=== PATIENT | female | born 2000 | race Caucasian/White ===

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

== ENCOUNTER 2019-08-29 10:28 | Inpatient (IN) ==
[2019-08-29] MEDS ORDERED: ALBUT/IPRATROP 3MG/0.5MG NEB 3 ML VIAL INH STA (11:00)
[2019-08-29] MEDS ORDERED: SODIUM CHLORIDE 0.9% 1000ML 2,000 ML IV SCH (11:00)
[2019-08-29 11:42] LABS: Basophils # (auto) 0.02 K/uL (0-0.2); Basophils % (auto) 0.2 %; Eosinophils # (auto) 0.42 K/uL (0-0.5); Eosinophils % (auto) 3.4 %; Hematocrit (blood only) 36.2 % (37-47); Hemoglobin 12.8 g/dL (12.0-16.0); Immature Granulocytes # (auto) 0.02 K/uL (0.00-0.02); Immature Granulocytes % (auto) 0.2 %; Lymphocytes # (auto) 1.35 K/uL (1.2-3.4); Mean Corpuscular Hemoglobin 30.7 pg (25-34); Mean Corpuscular Hgb Conc 35.4 g/dL (32-36); Mean Corpuscular Volume 86.8 fL (80-100); Monocytes # (auto) 0.76 K/uL (0.11-0.59); Monocytes % (auto) 6.2 %; Neutrophils # (auto) 9.75 K/uL (1.4-6.5); Platelet Count 369 K/uL (130-400); RDW Coefficient of Variation 12.7 % (11.5-14.5); RDW Standard Deviation 40.8 fL (36.4-46.3); Red Blood Count 4.17 M/uL (4.2-5.4); White Blood Count 12.32 K/uL (4.8-10.8)
[2019-08-29 11:47] LABS: Appearance Urine Cloudy (Clear); Bacteria Urine Automated Negative (Negative); Blood Urine Negative (Negative); Color Urine Dark Yellow; Epithelial Cell Urine Auto >30 /lpf (0-5); Glucose Urine UA Negative (Negative); Leukocyte Esterase Urine Negative (Negative); Nitrite Urine Negative (Negative); Protein Urine 1+ (Negative); Specific Gravity Urine 1.031 (1.000-1.030); Urobilinogen Urine Negative (Negative)
[2019-08-29 11:57] LABS: Bilirubin Urine Negative (Negative); Ictotest Urine Negative (Negative); Ketones Urine 3+ (Negative); Partial Thromboplastin Ratio 1.1; Partial Thromboplastin Time 29.4 Seconds (21.0-31.0)
[2019-08-29 11:58] LABS: Calcium Oxalate Crystals Urine Present (None Prsent)
[2019-08-29 11:59] LABS: Albumin Level 3.7 gm/dl (3.4-5.0); BUN Creatinine Ratio 14.6 (10-20); Calcium 9.8 mg/dl (8.5-10.1); Creatinine Clr Calc Pharmacy 89.5 ml/min; Est GFR (African American) 123.9; Est GFR (Non-African American) 106.9; Potassium 3.7 mmol/L (3.5-5.1)
--- NOTE | 2019-08-29 11:59 | XRay Report ---
XR chest 1V portable CLINICAL HISTORY: Dyspnea dyspnea COMPARISON STUDY: No previous studies for comparison. FINDINGS: Poorly defined parenchymal infiltrate left mid and lower lung region. Minimal parenchymal i nfiltrate right base. Pulmonary apices are clear. Diaphragms are smooth. IMPRESSION: Left and to a lesser extent right base parenchymal infiltrative change. No regions of co nsolidation. ACT 112: Negative or not required by law. The above report was generated using voice recognition software. It may contain grammatical, syntax or spelling errors. Electronically signed by: Luke Kline M.D. 08/29/2019 11:57 AM
[2019-08-29 12:02] LABS: Albumin Globulin Ratio 0.8 (0.9-2); Bilirubin,Total 0.8 mg/dl (0.2-1); Globulin 4.7 gm/dl (2.5-4.0); Total Protein 8.4 gm/dl (6.4-8.2)
[2019-08-29 12:07] LABS: D Dimer 780 ug/L FEU (0-500)
[2019-08-29 12:20] LABS: Influenza A virus by PCR Neg for Influ A (Neg); Influenza B virus by PCR Neg for Influ B (Neg)
[2019-08-29] MEDS ORDERED: OPTIRAY 320 125ml IV PRN (12:44)
--- NOTE | 2019-08-29 13:06 | CT Scan Report ---
CT angio chest PE protocol CT DOSE: 303.53 mGycm HISTORY: Chest pain PE TECHNIQUE: Multiaxial CT images of the chest were performed following the intravenous administration of contrast to evaluate the pulmonary arteries. Maximal intensity projection images were also obtaine d. A dose lowering technique was utilized adhering to the principles of ALARA. COMPARISON STUDY: None. FINDINGS: There is a normal caliber thoracic aorta with no evidence for dissection. There is no evide nce for pulmonary embolus. No pleural effusions. No pneumothorax. The liver and spleen are unremarkab le. No mediastinal or hilar lymphadenopathy. The central airways are patent. The lungs demonstrate a poorly defined parenchymal infiltrate left upper lung distribution. IMPRESSION: 1. Study is negative for pulmonary embolus. 2. Poorly defined patchy parenchymal infiltrate left upper lung. ACT 112: Negative or not required by law. The above report was generated using voice recognition software. It may contain grammatical, syntax or spelling errors. Electronically signed by: Luke Kline M.D. 08/29/2019 1:05 PM
[2019-08-29] MEDS ORDERED: SODIUM CHLORIDE 0.9% 1000ML 1,000 ML IV ONE (13:11)
[2019-08-29] MEDS ORDERED: methylPREDNISolone 125 MG/2 ML VIAL IV STA (13:26)
[2019-08-29] MEDS ORDERED: ALBUTEROL 0.083% NEBU SOLN 3 ML VIAL NEB STA (13:26)
[2019-08-29] MEDS ORDERED: LEVOFLOXACIN/D5W 750 MG/150 ML BAG IV SCH (13:30)
[2019-08-29] MEDS ORDERED: KETOROLAC TROMETHAMINE 15 MG/ML VIAL IV PRN (14:41)
[2019-08-29] MEDS ORDERED: OXYCODONE/ACETAMINOPHEN 5mg/325mg TAB PO PRN (14:41)
--- NOTE | 2019-08-29 14:51 | History & Physical Report ---
Date of Service August 29, 2019 Assessment & Plan (1) Pneumonia: Admit to PCU on telemetry for pneumonia and possible sepsis. Procalcitonin pending, lactic acid pending Blood cultures and sputum cultures pending Patient failed treatment with Augmentin and he was started in the ER and Levaqu in 750mg IV daily empirically Follow-up blood and sputum cultures Duo nebs every 4 hours and as needed as per RT Robitussin for cough every 6 hours Prednisone 20 mg p.o. daily for 5 days. Patient already received 60 IV of Solu- Medrol in the ER. DVT prophylaxis Lovenox 40 mg subcu daily Full code (2) Abnormal EKG: Patient is tachycardic due to pneumonia versus sepsis Tachycardia is on demand and T wave inversion appears to be on demand There is no other EKG for comparison First troponin is negative, we will continue checking troponins x3 with EKG Given aspirin 81 mg p.o. Continue monitoring vital signs every 4 hours Present on Admission?: Yes (3) Asthma: Patient does not appear to be in exacerbation even though she has pneumonia and possible sepsis. Continue duo nebs as discussed above. She is not at home on any medication for asthma. Present on Admission?: Yes History of Present Illness Chief Complaint: Cough and malaise Primary Care Provider: [facility] The patient is a 18 years old female without significant past medical history who presents to the emergency room with a complaint of shortness of breath, productive cough for 2 weeks. Patient reports that her condition is worsening and she went to [facility] where she was prescribed Augmentin on August 25. Patient started to take medicine on Monday but she reports no improvement for the past 3 days. Patient reports that her body aches and she feels malaise. Patient denies fever, chills,, chest pain, abdominal pain, frequency, urgency, syncope or near syncope. EKG reviewed and shows sinus tachycardia of rate 138 bpm with T wave abnormalities inversion in inferior and anterolateral leads. Labs are reviewed WBC is 12.32, hemoglobin 12.8, hematocrit 36.2, platelets 369, PT 10, INR 1, APTT 29.4, d-dimer 780, sodium 136, potassium 3.7, chloride 105, carbon dioxide 22, anion gap 9, BUN 12, creatinine 0.8, GFR 106.9, magnesium pending, total bilirubin 0.8, AST 16, ALT 22, alkaline phosphatase 87, troponin 0.015, total protein 8.4, albumin 3.7, globulin 4.7, urine color dark yellow, appearance cloudy, specific gravity 1.0 31, urine protein 1+ urine ketones 3+ urine RBCs 5-10, hyaline 5-10. Influenza A and B negative. Chest x-ray shows left and now a lesser extent right base parenchymal infiltrate change. No regions of consolidation. CTA to rule out pulmonary embolism: Study is negative for pulmonary embolism, poorly defined patchy parenchymal infiltrate left upper lung. Decision was made to admit patient to PCU on telemetry for pneumonia and possible sepsis, ST segment depression. Allergies Allergy/AdvReac Type Severity Reaction Status Date / Time metronidazole AdvReac Intermediate Nausea and Unverified 08/29/19 11:48 Dizziness Home Medications Home Medications Medication Instructions Recorded Confirmed Type norethindrone-e.estradiol-iron 1 tab PO QAM 08/29/19 08/29/19 History [] Past Med/Surg History Medical History Asthma (Acute) Family History Other No significant family history Social History Preferred Language: Emirati marital status: Single Current Living Situation: Other Current Living Situation Comment: Roommate current occupational status: student Feels Safe at Home: Yes Smoking Status: Never smoker Review of Systems Review of Systems: All systems reviewed & are unremarkable except as noted in HPI & below Physical Exam Constitutional: WD/WN, vitals as above well developed and + ill appearing Eyes: PERRL, conjunctivae normal, anicteric sclerae ENMT: external ear and nose normal, oropharynx normal Neck: trachea midline, no thyromegaly Respiratory: + respiratory distress, + labored breathing and + uses accessory muscles Auscultation: + crackles and + wheezes Cardiovascular: Rate/Rhythm: regular rate, regular rhythm and + tachycardic Vessels: dorsalis pedis pulses present Gastrointestinal (Abdomen): normal bowel sounds, soft, nontender, no hepatosplenomegaly Musculoskeletal: no cyanosis or clubbing, extremities motor strength 5/5 Skin: no rashes, warm and dry Neurologic: patellar DTR's 2+ bilat, sensation intact Psychiatric: A+Ox3, euthymic affect Genitourinary: no vaginal lesions, no adnexal mass Lymphatic: no cervical or axillary lymphadenopathy Results & Data Vital Signs (Past 12 Hours) Vital Signs Temp Pulse Pulse Pulse Resp BP BP 08/29/19 14:00 133 H 133 H 16 117/82 08/29/19 13:36 124 H 16 08/29/19 13:30 126 H 126 H 16 126/77 08/29/19 13:00 146 H 18 125/83 08/29/19 12:30 132 H 18 138/98 08/29/19 12:00 136 H 18 130/84 08/29/19 11:26 152 H 26 H 135/89 08/29/19 11:15 137 H 18 08/29/19 11:00 138 H 136 H 18 132/82 08/29/19 10:51 37.2 C 138 H 20 123/79 Pulse Ox 08/29/19 14:00 96 08/29/19 13:36 95 08/29/19 13:30 94 08/29/19 13:00 93 08/29/19 12:30 95 08/29/19 12:00 95 08/29/19 11:26 94 08/29/19 11:15 94 08/29/19 11:00 94 08/29/19 10:51 96 Code Status & VTE Plan Code Status Full code PG Care Time/CCT Total # of Minutes Spent Total Time Spent with Patient: Total time spent is greater than 50% in coordination of care (as documented) at patient's floor/unit and/or counseling patient: Coding Level of Care Code 39132 Initial Inpt Care Lvl 3 Diagnoses Pneumonia J18.9 Laterality: unspecified laterality Lung location: unspecified part of lung Pneumonia type: due to unspecified organism Abnormal EKG R94.31 Asthma J45.909 Asthma complication type: unspecified Asthma persistence: unspecified Asthma severity: unspecified severity (1) Pneumonia Laterality: unspecified laterality Lung location: unspecified part of lung Pneumonia type: due to unspecified organism Qualified Code(s): J18.9 - Pneumonia, unspecified organism (2) Asthma Asthma complication type: unspecified Asthma persistence: unspecified Asthma severity: unspecified severity Qualified Code(s): J45.909 - Unspecified asthma, uncomplicated
[2019-08-29] MEDS ORDERED: ACETAMINOPHEN 325 MG TAB PO PRN (16:21)
[2019-08-29] MEDS ORDERED: ALUMINUM/MAGNESIUM SUSP 30 ML UDC PO PRN (16:21)
[2019-08-29] MEDS ORDERED: ONDANSETRON INJ 2 MG/ML 2 ML VIAL IV PRN (16:21)
[2019-08-29] MEDS ORDERED: POLYETHYLENE (MIRALAX) 17 GM PACK PO PRN (16:21)
[2019-08-29] MEDS ORDERED: GUAIFENESIN/DEXTROM SYRUP 200MG/20MG 10ML UDC PO PRN (16:21)
[2019-08-29] MEDS ORDERED: ALBUT/IPRATROP 3MG/0.5MG NEB 3 ML VIAL NEB SCH (16:21)
[2019-08-29] MEDS ORDERED: MAGNESIUM HYDROXIDE SUSP 30 ML UDC PO PRN (16:21)
--- NOTE | 2019-08-29 16:30 | Emergency Department Note ---
Entered by Jackie Ray acting as a scribe for History of Present Illness General Chief complaint: Flu Like Symptoms Stated complaint: COUGH,CHEST PAIN,FEVER,SOB,HEADACHE,BACK PAIN Source: patient History of Present Illness Onset (ago): day(s) (13) Location: chest Pain Consistency: + other (persistent) Quality: + other (flu-like symptoms) Relieved By: not by medication (Augmentin, Pro Air, nebulizer treatment) Exacerbated By: + other (cold air) Associated symptoms: + denies other symptoms (rhinorrhea, ear pain, sore throat, congestion, dysuria, burning with urination, vaginal bleeding, vaginal discharge), + cough, + fever/chills (fever), + nausea/vomiting (vomiting), + shortness of breath and + other (body aches) The patient is a 18 year old female who presents to the Emergency Room with complaints of persistent flu-like symptoms starting 13 days ago. The patient states that 13 days ago she started having what she thought was just a cold. She states that she just had a cough. She states that she then came back to school for 2 days before going to [place] for 5 days. She reports that when she got back on Monday, 4 days ago, she noticed that she had a fever, her cough was getting worse, and she had body aches. She states that her fever was 101 and since then has been between 100.5 and 103. She reports that she also started coughing up white and yellow phlegm. The patient states that she went to Urgent Care 3 days ago and they started her on Augmentin, Pro Air, and a nebulizer treatment for bronchitis. She notes that she has been taking all the way she is supposed to and nothing is getting better. She reports that today she was st arting to feel short of breath and this concerned her even more. She reports that she cannot go outside because the cold air makes her test feel very tight. The patient complains of vomiting when she coughs so much. The patient notes that her immunizations are up to date and her LNMP was the 1st week of August. The patient denies rhinorrhea, ear pain, sore throat, congestion, dysuria, burning with urination, vaginal bleeding, vaginal discharge, being around anyone who has been sick, a history of blood clots, a history of clotting disorders, and being on control. Home Medications Home Medications Medication Instructions Recorded Confirmed Type norethindrone-e.estradiol-iron 1 tab PO QAM 08/29/19 08/29/19 History [] Allergies Allergy/AdvReac Type Severity Reaction Status Date / Time metronidazole AdvReac Intermediate Nausea and Unverified 08/29/19 11:48 Dizziness Past Med/Surg History Medical History Asthma (Acute) Family History Other No significant family history Social History Preferred Language: Thai marital status: Single Current Living Situation: Other Current Living Situation Comment: Roommate current occupational status: student Feels Safe at Home: Yes Smoking Status: Never smoker Review of Systems See HPI for pertinent positives & negatives. and A total of 10 systems reviewed and were otherwise negative Physical Exam Vital Signs Vital Signs - 24 hr 08/29/19 10:51 08/29/19 11:00 08/29/19 11:15 Temperature 37.2 C Temperature Source Oral Pulse Rate 138 H 138 H Pulse Rate [Apical] Pulse Rate [Radial] 136 H 137 H Pulse Rhythm Regular Pulse Rhythm [Radial] Regular Pulse Strength [Radial] Normal Respiratory Rate 20 18 18 Respiratory Effort / Characteristics Non-Labored Spontaneous Non-Labored Spontaneous Non-Labored Spontaneous Respiratory Depth Normal Normal Respiratory Pattern Regular Regular Blood Pressure 123/79 Blood Pressure [Right Arm] 132/82 Blood Pressure Mean 93 Blood Pressure Mean [Right Arm] 98 Blood Pressure Position Sitting Blood Pressure Position [Right Arm] Lying Pulse Oximetry 96 94 94 Oxygen Delivery Method Room Air Room Air Room Air Sepsis Recent Fever Within 48 Hours No Sepsis New/Unexplained Change in Mental Status No Sepsis Action Taken by Nursing No Action Required 08/29/19 11:26 08/29/19 12:00 08/29/19 12:30 Temperature Temperature Source Pulse Rate Pulse Rate [Apical] Pulse Rate [Radial] 152 H 136 H 132 H Pulse Rhythm Pulse Rhythm [Radial] Regular Regular Regular Pulse Strength [Radial] Normal Normal Normal Respiratory Rate 26 H 18 18 Respiratory Effort / Characteristics Non-Labored Spontaneous Non-Labored Spontaneous Non-Labored Spontaneous Respiratory Depth Normal Normal Normal Respiratory Pattern Regular Regular Regular Blood Pressure Blood Pressure [Right Arm] 135/89 130/84 138/98 Blood Pressure Mean Blood Pressure Mean [Right Arm] 104 99 111 Blood Pressure Position Blood Pressure Position [Right Arm] Lying Lying Lying Pulse Oximetry 94 95 95 Oxygen Delivery Method Room Air Room Air Room Air Sepsis Recent Fever Within 48 Hours Sepsis New/Unexplained Change in Mental Status Sepsis Action Taken by Nursing 08/29/19 13:00 08/29/19 13:30 08/29/19 13:36 Temperature Temperature Source Pulse Rate Pulse Rate [Apical] 126 H 124 H Pulse Rate [Radial] 146 H 126 H Pulse Rhythm Pulse Rhythm [Radial] Regular Regular Pulse Strength [Radial] Normal Normal Respiratory Rate 18 16 16 Respiratory Effort / Characteristics Non-Labored Spontaneous Non-Labored Spontaneous Non-Labored Spontaneous Respiratory Depth Normal Normal Respiratory Pattern Regular Regular Blood Pressure Blood Pressure [Right Arm] 125/83 126/77 Blood Pressure Mean Blood Pressure Mean [Right Arm] 97 93 Blood Pressure Position Blood Pressure Position [Right Arm] Lying Lying Pulse Oximetry 93 94 95 Oxygen Delivery Method Room Air Room Air Room Air Sepsis Recent Fever Within 48 Hours Sepsis New/Unexplained Change in Mental Status Sepsis Action Taken by Nursing 08/29/19 14:00 08/29/19 14:30 Temperature Temperature Source Pulse Rate Pulse Rate [Apical] 133 H 129 H Pulse Rate [Radial] 133 H 129 H Pulse Rhythm Pulse Rhythm [Radial] Regular Regular Pulse Strength [Radial] Normal Normal Respiratory Rate 16 16 Respiratory Effort / Characteristics Non-Labored Spontaneous Non-Labored Spontaneous Respiratory Depth Normal Normal Respiratory Pattern Regular Regular Blood Pressure Blood Pressure [Right Arm] 117/82 126/81 Blood Pressure Mean Blood Pressure Mean [Right Arm] 93 96 Blood Pressure Position Blood Pressure Position [Right Arm] Lying Lying Pulse Oximetry 96 95 Oxygen Delivery Method Room Air Room Air Sepsis Recent Fever Within 48 Hours Sepsis New/Unexplained Change in Mental Status Sepsis Action Taken by Nursing GENERAL: sitting up in bed with persistent intermittent cough, talking in full sentences, nontoxic EYE EXAM: normal conjunctiva OROPHARYNX: no exudate, no erythema, lips, buccal mucosa, and tongue normal and mucous membranes are moist NECK: supple, no nuchal rigidity, no adenopathy, non-tender LUNGS: faint wheezing bilaterally. Normal chest wall mechanics HEART: no murmurs, S1 normal and S2 normal ABDOMEN: abdomen soft, non-tender, normo-active bowel sounds, no masses, no rebound or guarding. BACK: Back is symmetrical on inspection and there is no deformity, no midline tenderness, no CVA tenderness. SKIN: no rashes and no bruising UPPER EXTREMITIES: upper extremities are grossly normal. LOWER EXTREMITIES: No pitting edema. Calves equal bilaterally. NEURO EXAM: Normal sensorium, cranial nerves II-XII grossly intact, normal speech, no gross weakness of arms, no gross weakness of legs. Course Course ED COURSE: Vital signs were reviewed and showed tachycardia. The patients medical record was reviewed The above diagnostic studies were performed and reviewed. ED treatments and interventions as stated above. 1055: The patient was evaluated in room C2B. A complete history and physical ex amination was performed. 1224: I reevaluated the patient and updated her on her test results thus far. She is still tachycardic. 1314: Upon reevaluation, the patient is resting comfortably. I discussed my findings with the patient and she understands and agrees with the treatment plan. Based on the patients age, coexisting illnesses, exam and lab findings the decision to treat as an inpatient was made. The patient remained stable while under my care. The patient will be evaluated for further management. 1338: I discussed the patient's case with Dr. Luu [facility] Hospitalist. She will evaluate the patient for further management. Administered Medications Levofloxacin/Dextrose (Levaquin/D5w) 750 mg in 150 mls @ 100 mls/hr IV Q24H [facility] Stop: 10/10/19 13:29 Last Infusion: 08/29/19 15:47 Dose: 0 mls/hr Documented by: [id number] Admin: 08/29/19 14:17 Dose: 100 mls/hr Documented by: [id number] Discontinued Medications Albuterol (Duoneb) 6 ml INH NOW STA Stop: 08/29/19 11:01 Last Admin: 08/29/19 11:14 Dose: 6 ml Documented by: [id number] Albuterol (Ventolin 0.083% 2.5mg/3ml) 2.5 mg NEB NOW STA Stop: 08/29/19 13:27 Last Admin: 08/29/19 13:36 Dose: 2.5 mg Documented by: [id number] Sodium Chloride (Nss 1000ml) 2,000 mls @ 999 mls/hr IV .Q2H1M HUSEYIN Stop: 08/29/19 13:00 Last Infusion: 08/29/19 13:28 Dose: 0 mls/hr Documented by: [id number] Admin: 08/29/19 11:27 Dose: 999 mls/hr Documented by: [id number] Sodium Chloride (Nss 1000ml) 1,000 mls @ 999 mls/hr IV .Q1H1M ONE Stop: 08/29/19 14:11 Last Infusion: 08/29/19 14:26 Dose: 0 mls/hr Documented by: [id number] Admin: 08/29/19 13:25 Dose: 999 mls/hr Documented by: [id number] Ioversol (Optiray 320 125ml) 120 ml IV ONCE PRN PRN Reason: Interaction Checking Stop: 09/02/19 12:43 Last Admin: 08/29/19 12:45 Dose: 120 ml Documented by: [id number] Methylprednisolone (Solumedrol) 60 mg IV NOW STA Stop: 08/29/19 13:27 Last Admin: 08/29/19 14:17 Dose: 60 mg Documented by: [id number] Medical Decision Making Differential Diagnosis Differential diagnoses includes but is not limited to pneumonia, bronchitis, COPD/Asthma exacerbation, pneumothorax, pulmonary embolism, congestive heart failure, acute coronary syndrome. Medical Records Attestation: I reviewed the patient's medical records. Home Medications Current Medication List: was personally reviewed by me Laboratory Data Attestation: I reviewed the patient's lab results. Result diagrams: 08/29/19 11:26 08/29/19 11:26 Lab Results 08/29/19 08/29/19 08/29/19 Range/Units 11:26 11:26 11:26 WBC 12.32 H (4.8-10.8) K/uL RBC 4.17 L (4.2-5.4) M/uL Hgb 12.8 (12.0-16.0) g/dL Hct 36.2 L (37-47) % MCV 86.8 (80-100) fL MCH 30.7 (25-34) pg MCHC 35.4 (32-36) g/dL RDW Std Deviation 40.8 (36.4-46.3) fL RDW Coeff of Wade 12.7 (11.5-14.5) % Plt Count 369 (130-400) K/uL MPV 9.0 (7.4-10.4) fL Immature Gran % (Auto) 0.2 % Neut % (Auto) 79.0 % Lymph % (Auto) 11.0 % Dale % (Auto) 6.2 % Eos % (Auto) 3.4 % Baso % (Auto) 0.2 % Immature Gran # (Auto) 0.02 (0.00-0.02) K/uL Neut # (Auto) 9.75 H (1.4-6.5) K/uL Lymph # (Auto) 1.35 (1.2-3.4) K/uL Dale # (Auto) 0.76 H (0.11-0.59) K/uL Eos # (Auto) 0.42 (0-0.5) K/uL Baso # (Auto) 0.02 (0-0.2) K/uL PT 10.0 (9.0-12.0) Seconds INR 1.0 (0.9-1.1) APTT 29.4 (21.0-31.0) Seconds PTT Ratio 1.1 D-Dimer 780 H* (0-500) ug/L FEU Sodium 136 (136-145) mmol/L Potassium 3.7 (3.5-5.1) mmol/L Chloride 105 (98-107) mmol/L Carbon Dioxide 22 (21-32) mmol/L Anion Gap 9.0 (3-11) BUN 12 (7-18) mg/dl Creatinine 0.80 (0.6-1.2) mg/dl Est Cr Clr Drug Dosing 89.5 ml/min Est GFR ( Amer) 123.9 Est GFR (Non-Af Amer) 106.9 BUN/Creatinine Ratio 14.6 (10-20) Glucose 81 (70-99) mg/dl Calcium 9.8 (8.5-10.1) mg/dl Magnesium (1.8-2.4) mg/dl Total Bilirubin 0.8 (0.2-1) mg/dl AST 16 (15-37) U/L ALT 22 (12-78) U/L Alkaline Phosphatase 87 (45-117) U/L Troponin I (0-0.045) ng/ml Total Protein 8.4 H (6.4-8.2) gm/dl Albumin 3.7 (3.4-5.0) gm/dl Globulin 4.7 H (2.5-4.0) gm/dl Albumin/Globulin Ratio 0.8 L (0.9-2) Urine Color Urine Appearance (Clear) Urine pH (4.5-7.5) Ur Specific [place] (1.000-1.030) Urine Protein (Negative) Urine Glucose (UA) (Negative) Urine Ketones (Negative) Urine Blood (Negative) Urine Nitrite (Negative) Urine Bilirubin (Negative) Urine Urobilinogen (Negative) Ur Leukocyte Esterase (Negative) Urine WBC (Auto) (0-5) /hpf Urine RBC (Auto) (0-4) /hpf U Hyaline Cast (Auto) (0-5) /lpf U Epithel Cells (Auto) (0-5) /lpf Urine Bacteria (Auto) (Negative) Urine Crystals (None Prsent) Calcium Oxalate Crystal (None Prsent) Influenza Type A (PCR) (Neg) Influenza Type B (PCR) (Neg) 08/29/19 08/29/19 08/29/19 Range/Units 11:26 11:26 11:26 WBC (4.8-10.8) K/uL RBC (4.2-5.4) M/uL Hgb (12.0-16.0) g/dL Hct (37-47) % MCV (80-100) fL MCH (25-34) pg MCHC (32-36) g/dL RDW Std Deviation (36.4-46.3) fL RDW Coeff of Wade (11.5-14.5) % Plt Count (130-400) K/uL MPV (7.4-10.4) fL Immature Gran % (Auto) % Neut % (Auto) % Lymph % (Auto) % Dale % (Auto) % Eos % (Auto) % Baso % (Auto) % Immature Gran # (Auto) (0.00-0.02) K/uL Neut # (Auto) (1.4-6.5) K/uL Lymph # (Auto) (1.2-3.4) K/uL Dale # (Auto) (0.11-0.59) K/uL Eos # (Auto) (0-0.5) K/uL Baso # (Auto) (0-0.2) K/uL PT (9.0-12.0) Seconds INR (0.9-1.1) APTT (21.0-31.0) Seconds PTT Ratio D-Dimer (0-500) ug/L FEU Sodium (136-145) mmol/L Potassium (3.5-5.1) mmol/L Chloride (98-107) mmol/L Carbon Dioxide (21-32) mmol/L Anion Gap (3-11) BUN (7-18) mg/dl Creatinine (0.6-1.2) mg/dl Est Cr Clr Drug Dosing ml/min Est GFR ( Amer) Est GFR (Non-Af Amer) BUN/Creatinine Ratio (10-20) Glucose (70-99) mg/dl Calcium (8.5-10.1) mg/dl Magnesium (1.8-2.4) mg/dl Total Bilirubin (0.2-1) mg/dl AST (15-37) U/L ALT (12-78) U/L Alkaline Phosphatase (45-117) U/L Troponin I < 0.015 (0-0.045) ng/ml Total Protein (6.4-8.2) gm/dl Albumin (3.4-5.0) gm/dl Globulin (2.5-4.0) gm/dl Albumin/Globulin Ratio (0.9-2) Urine Color Dark Yellow Urine Appearance Cloudy A (Clear) Urine pH 6.0 (4.5-7.5) Ur Specific [place] 1.031 H (1.000-1.030) Urine Protein 1+ H (Negative) Urine Glucose (UA) Negative (Negative) Urine Ketones 3+ H (Negative) Urine Blood Negative (Negative) Urine Nitrite Negative (Negative) Urine Bilirubin Negative (Negative) Urine Urobilinogen Negative (Negative) Ur Leukocyte Esterase Negative (Negative) Urine WBC (Auto) 1-5 (0-5) /hpf Urine RBC (Auto) 5-10 H (0-4) /hpf U Hyaline Cast (Auto) 5-10 H (0-5) /lpf U Epithel Cells (Auto) >30 H (0-5) /lpf Urine Bacteria (Auto) Negative (Negative) Urine Crystals [place] (None Prsent) Calcium Oxalate Crystal Present A (None Prsent) Influenza Type A (PCR) Neg for Influ A (Neg) Influenza Type B (PCR) Neg for Influ B (Neg) 08/29/19 Range/Units 11:26 WBC (4.8-10.8) K/uL RBC (4.2-5.4) M/uL Hgb (12.0-16.0) g/dL Hct (37-47) % MCV (80-100) fL MCH (25-34) pg MCHC (32-36) g/dL RDW Std Deviation (36.4-46.3) fL RDW Coeff of Wade (11.5-14.5) % Plt Count (130-400) K/uL MPV (7.4-10.4) fL Immature Gran % (Auto) % Neut % (Auto) % Lymph % (Auto) % Dale % (Auto) % Eos % (Auto) % Baso % (Auto) % Immature Gran # (Auto) (0.00-0.02) K/uL Neut # (Auto) (1.4-6.5) K/uL Lymph # (Auto) (1.2-3.4) K/uL Dale # (Auto) (0.11-0.59) K/uL Eos # (Auto) (0-0.5) K/uL Baso # (Auto) (0-0.2) K/uL PT (9.0-12.0) Seconds INR (0.9-1.1) APTT (21.0-31.0) Seconds PTT Ratio D-Dimer (0-500) ug/L FEU Sodium (136-145) mmol/L Potassium (3.5-5.1) mmol/L Chloride (98-107) mmol/L Carbon Dioxide (21-32) mmol/L Anion Gap (3-11) BUN (7-18) mg/dl Creatinine (0.6-1.2) mg/dl Est Cr Clr Drug Dosing ml/min Est GFR ( Amer) Est GFR (Non-Af Amer) BUN/Creatinine Ratio (10-20) Glucose (70-99) mg/dl Calcium (8.5-10.1) mg/dl Magnesium 2.5 H (1.8-2.4) mg/dl Total Bilirubin (0.2-1) mg/dl AST (15-37) U/L ALT (12-78) U/L Alkaline Phosphatase (45-117) U/L Troponin I (0-0.045) ng/ml Total Protein (6.4-8.2) gm/dl Albumin (3.4-5.0) gm/dl Globulin (2.5-4.0) gm/dl Albumin/Globulin Ratio (0.9-2) Urine Color Urine Appearance (Clear) Urine pH (4.5-7.5) Ur Specific [place] (1.000-1.030) Urine Protein (Negative) Urine Glucose (UA) (Negative) Urine Ketones (Negative) Urine Blood (Negative) Urine Nitrite (Negative) Urine Bilirubin (Negative) Urine Urobilinogen (Negative) Ur Leukocyte Esterase (Negative) Urine WBC (Auto) (0-5) /hpf Urine RBC (Auto) (0-4) /hpf U Hyaline Cast (Auto) (0-5) /lpf U Epithel Cells (Auto) (0-5) /lpf Urine Bacteria (Auto) (Negative) Urine Crystals (None Prsent) Calcium Oxalate Crystal (None Prsent) Influenza Type A (PCR) (Neg) Influenza Type B (PCR) (Neg) Imaging Data Radiologist's Impression: Radiology results as stated below per my review and the radiologist's interpretation: XR chest 1V portable CLINICAL HISTORY: Dyspnea dyspnea COMPARISON STUDY: No previous studies for comparison. FINDINGS: Poorly defined parenchymal infiltrate left mid and lower lung region. Minimal parenchymal infiltrate right base. Pulmonary apices are clear. Diaphragms are smooth. IMPRESSION: Left and to a lesser extent right base parenchymal infiltrative change. No regions of consolidation. ACT 112: Negative or not required by law. The above report was generated using voice recognition software. It may contain grammatical, syntax or spelling errors. Electronically signed by: Luke Kline M.D. 08/29/2019 11:[address] angio chest PE protocol CT DOSE: 303.53 mGycm HISTORY: Chest pain PE TECHNIQUE: Multiaxial CT images of the chest were performed following the intravenous administration of contrast to evaluate the pulmonary arteries. Maximal intensity projection images were also obtained. A dose lowering technique was utilized adhering to the principles of ALARA. COMPARISON STUDY: None. FINDINGS: There is a normal caliber thoracic aorta with no evidence for disse ction. There is no evidence for pulmonary embolus. No pleural effusions. No pneumothorax. The liver and spleen are unremarkable. No mediastinal or hilar lymphadenopathy. The central airways are patent. The lungs demonstrate a poorly defined parenchymal infiltrate left upper lung distribution. IMPRESSION: 1. Study is negative for pulmonary embolus. 2. Poorly defined patchy parenchymal infiltrate left upper lung. ACT 112: Negative or not required by law. The above report was generated using voice recognition software. It may contain grammatical, syntax or spelling errors. Electronically signed by: Luke Kline M.D. 08/29/2019 1:05 PM ECG Data Attestation: I personally reviewed and interpreted this ECG as follows: Indication: + SOB/dyspnea Rate (beats per minute): 138 Rhythm: + sinus tachycardia ECG Rock: + Normal ECG ST segments: + ST depression (inferior and anterior) and + T-wave inversions (inferior and anterior) Blood Pressure Blood Pressure Findings: Normal blood pressure Blood Pressure Disposition: did not require urgent referral MDM Narrative Patient is a 18-year-old female who presents the ER for cough, fevers, shortness of breath and a history of asthma. IV was established blood work was obtained. Patient was persistently tacky in the 130s. Labs show mild leukocytosis of 12,000. D-dimer was elevated with recent travel to [place]. BMP LFTs bilirubin was unremarkable. UA does suggest dehydration with ketones. Contaminated otherwise. Influenza negative. CT PE does show left lobe infiltrate. Patient was given IV Levaquin and 3 L IV fluids along with Toradol. Patient was given a neb treatment. She did have some mild improvement. She was also given IV steroids. Updated discussed with the hospitalist that she remained persistently tachycardic with ST depressions in the inferior and anterior leads on the EKG with pneumonia. Do not believe to be ischemic. Impression & Plan Pneumonia, Shortness of breath, Asthma, Abnormal EKG Discharge Plan Visit Data *Final* Discharge Date/Time: 08/29/19 15:43 Chief Complaint: Flu Like Symptoms Stated Complaint: COUGH,CHEST PAIN,FEVER,SOB,HEADACHE,BACK PAIN ED Provider: Agustín Sandoval Discharge Problem: Pneumonia, Shortness of breath, Asthma, Abnormal EKG Patient Disposition: Admitted As Inpatient Discharge Instructions Interventions: ED Discharge Assessment Last Done: 08/29/19 15:43 Discharge Problem: Pneumonia Qualifiers: Pneumonia type: due to unspecified organism Laterality: unspecified laterality Lung location: unspecified part of lung Qualified Code(s): J18.9 - Pneumonia, unspecified organism Asthma Qualifiers: Asthma severity: unspecified severity Asthma persistence: unspecified Asthma complication type: unspecified Qualified Code(s): J45.909 - Unspecified asthma, uncomplicated The scribe's documentation has been prepared under my direction and personally reviewed by me in its entirety. I confirm that the note above accurately reflects all work, treatment, procedures, and medical decision making performed by me.
[2019-08-29] MEDS ORDERED: NSS + 20MEQ KCL 20 MEQ/1,000 ML BAG IV SCH (17:00)
[2019-08-29 17:19] LABS: NT Pro B Type Natriuretic Pept 76 pg/ml (0-450); Troponin I < 0.015 ng/ml (0-0.045)
[2019-08-29] MEDS: NSS + 20MEQ KCL 20 MEQ/1,000 ML BAG IV SCH (17:26)
[2019-08-29] MEDS: ASPIRIN 81 MG ECTAB PO SCH (17:26)
--- NOTE | 2019-08-29 17:49 | CT Scan Report ---
CT SCAN OF THE BRAIN WITHOUT IV CONTRAST CLINICAL HISTORY: Numbness and tingling. COMPARISON STUDY: No priors. TECHNIQUE: Unenhanced axial CT scan of the brain is performed from the vertex to the skull base. A d ose lowering technique was utilized adhering to the principles of ALARA. CT DOSE: 537.48 mGy.cm FINDINGS: Brain parenchyma: The brain parenchyma is normal in appearance. There is no hemorrhage, mass effect, or evidence of acute territorial ischemia by CT criteria. Mosley-white matter differentiation is preser nadia. No extra-axial fluid collection is seen. Ventricles, sulci, cisterns: Normal in configuration. Intracranial vasculature: The visualized intracranial vasculature at the skull base is normal in appe arance. Calvarium: Unremarkable. Sinuses and mastoids: The visualized paranasal sinuses are clear. The mastoid air cells are well pneu matized. Orbits: The bony orbits are grossly intact. IMPRESSION: No acute intracranial abnormality. ACT 112: Negative or not required by law. Electronically signed by: Jl Lewis M.D. 08/29/2019 5:48 PM
[2019-08-29] MEDS ORDERED: IPRATROPIUM BROMIDE NEB SOLN 0.02% 2.5 ML VIAL NEB SCH (19:00)
[2019-08-29] MEDS: BENZONATATE 100 MG CAPSULE PO SCH (20:17)
[2019-08-29] MEDS ORDERED: IPRATROPIUM BROMIDE NEB SOLN 0.02% 2.5 ML VIAL NEB PRN (22:47)
[2019-08-30] MEDS: NSS + 20MEQ KCL 20 MEQ/1,000 ML BAG IV SCH ×2 (00:08→07:40)
--- NOTE | 2019-08-30 05:54 | Electrocardiogram Report ---
Test Reason : Blood Pressure : / mmHG Vent. Rate : 138 BPM Atrial Rate : 138 BPM P-R Int : 138 ms QRS Dur : 076 ms QT Int : 280 ms P-R-T Axes : 061 074 -31 degrees QTc Int : 424 ms Sinus tachycardia T wave abnormality, consider inferior ischemia T wave abnormality, consider anterolateral ischemia Abnormal ECG No previous ECGs available Confirmed by Andrew Soto ([id number]) on 08/30/2019 5:54:25 AM Referred By: REFERRED SELF Confirmed By:Andrew Soto
[2019-08-30 07:06] LABS: Basophils # (auto) 0.01 K/uL (0-0.2); Basophils % (auto) 0.1 %; Hematocrit (blood only) 34.6 % (37-47); Hemoglobin 11.9 g/dL (12.0-16.0); Immature Granulocytes # (auto) 0.03 K/uL (0.00-0.02); Immature Granulocytes % (auto) 0.3 %; Lymphocytes # (auto) 1.19 K/uL (1.2-3.4); Lymphocytes % (auto) 12.3 %; Mean Corpuscular Hemoglobin 29.8 pg (25-34); Mean Corpuscular Hgb Conc 34.4 g/dL (32-36); Mean Corpuscular Volume 86.7 fL (80-100); Mean Platelet Volume 8.7 fL (7.4-10.4); Monocytes # (auto) 0.71 K/uL (0.11-0.59); Monocytes % (auto) 7.3 %; Neutrophils # (auto) 7.72 K/uL (1.4-6.5); Platelet Count 399 K/uL (130-400); RDW Coefficient of Variation 12.8 % (11.5-14.5); RDW Standard Deviation 40.7 fL (36.4-46.3); Red Blood Count 3.99 M/uL (4.2-5.4); White Blood Count 9.66 K/uL (4.8-10.8)
[2019-08-30 07:38] LABS: Alanine Aminotransferase 29 U/L (12-78); Aspartate Aminotransferase 18 U/L (15-37); BUN Creatinine Ratio 14.4 (10-20); Blood Urea Nitrogen 9 mg/dl (7-18); Calcium 8.9 mg/dl (8.5-10.1); Carbon Dioxide 19 mmol/L (21-32); Chloride 114 mmol/L (98-107); Creatinine Clr Calc Pharmacy 127.1 ml/min; Est GFR (African American) > 150.0; Est GFR (Non-African American) 131.4; Glucose 122 mg/dl (70-99); Potassium 4.1 mmol/L (3.5-5.1); Sodium 140 mmol/L (136-145)
[2019-08-30 07:41] LABS: Albumin Globulin Ratio 0.7 (0.9-2); Alkaline Phosphatase 89 U/L (45-117); Bilirubin,Total 0.5 mg/dl (0.2-1)
[2019-08-30] MEDS: BENZONATATE 100 MG CAPSULE PO SCH ×2 (08:09→14:26)
[2019-08-30] MEDS: ASPIRIN 81 MG ECTAB PO SCH (08:09)
[2019-08-30] MEDS ORDERED: predniSONE 20 MG TAB PO SCH (09:00)
[2019-08-30] MEDS ORDERED: levoFLOXacin 750 MG TAB PO ONE (14:30)
--- NOTE | 2019-08-30 15:49 | Discharge Summary ---
Date of Service August 30, 2019 Admission HPI Per Admitting Provider The patient is a 18 years old female without significant past medical history who presents to the emergency room with a complaint of shortness of breath, productive cough for 2 weeks. Patient reports that her condition is worsening and she went to [facility] where she was prescribed Augmentin on August 25. Patient started to take medicine on Monday but she reports no improvement for the past 3 days. Patient reports that her body aches and she feels malaise. Patient denies fever, chills,, chest pain, abdominal pain, frequency, urgency, syncope or near syncope. EKG reviewed and shows sinus tachycardia of rate 138 bpm with T wave abnormalities inversion in inferior and anterolateral leads. Labs are reviewed WBC is 12.32, hemoglobin 12.8, hematocrit 36.2, platelets 369, PT 10, INR 1, APTT 29.4, d-dimer 780, sodium 136, potassium 3.7, chloride 105, carbon dioxide 22, anion gap 9, BUN 12, creatinine 0.8, GFR 106.9, magnesium pending, total bilirubin 0.8, AST 16, ALT 22, alkaline phosphatase 87, troponin 0.015, total protein 8.4, albumin 3.7, globulin 4.7, urine color dark yellow, appearance cloudy, specific gravity 1.0 31, urine protein 1+ urine ketones 3+ urine RBCs 5-10, hyaline 5-10. Influenza A and B negative. Chest x-ray shows left and now a lesser extent right base parenchymal infiltrate change. No regions of consolidation. CTA to rule out pulmonary embolism: Study is negative for pulmonary embolism, poorly defined patchy parenchymal infiltrate left upper lung. Decision was made to admit patient to PCU on telemetry for pneumonia and possible sepsis, ST segment depression. Admission Exam Per Admitting Provider Constitutional: WD/WN, vitals as above well developed and + ill appearing Eyes: PERRL, conjunctivae normal, anicteric sclerae ENMT: external ear and nose normal, oropharynx normal Neck: trachea midline, no thyromegaly Respiratory: + respiratory distress, + labored breathing and + uses accessory muscles Auscultation: + crackles and + wheezes Cardiovascular: Rate/Rhythm: regular rate, regular rhythm and + tachycardic Vessels: dorsalis pedis pulses present Gastrointestinal (Abdomen): normal bowel sounds, soft, nontender, no hepatosplenomegaly Musculoskeletal: no cyanosis or clubbing, extremities motor strength 5/5 Skin: no rashes, warm and dry Neurologic: patellar DTR's 2+ bilat, sensation intact Psychiatric: A+Ox3, euthymic affect Genitourinary: no vaginal lesions, no adnexal mass Lymphatic: no cervical or axillary lymphadenopathy Principal Diagnosis Community-Acquired Pneumonia Discharge Exam Constitutional WD/WN, vitals as above cooperative Eyes PERRL, conjunctivae normal, anicteric sclerae ENMT external ear and nose normal, oropharynx normal Neck normal visual inspection and trachea midline Respiratory normal respiratory effort, lungs clear to auscultation Auscultation: no crackles, no rales, no rhonchi, no wheezes, no pleural rub and no vesicular breath sounds (respirations were caorse ) Cardiovascular RRR, no murmur, no edema Heart Sounds: normal S1 and normal S2 Gastrointestinal (Abdomen) normal bowel sounds, soft, nontender, no hepatosplenomegaly Skin no rashes, warm and dry Psychiatric A+Ox3, euthymic affect Discharge Data Allergies Allergy/AdvReac Type Severity Reaction Status Date / Time metronidazole AdvReac Intermediate Nausea and Unverified 08/29/19 11:48 Dizziness Consultations 08/29/19 13:27 ED Decision to Admit Stat 08/30/19 13:02 Burn CD for patient Stat Ordered Studies 08/29/19 12:22 CT angio chest PE protocol Stat 08/29/19 17:08 CT head/brain wo con Stat Hospital Course (1) Pneumonia: Jyothi is an otherwise well 18 yo F admitted for failed outpatient management of community acquired PNA. She has been symptomatic for 2 weeks prior to admission, and was prescribed a course of Augmentin 6 days ago without improvement. WBC was elevated to [address] CT showed a patchy infiltrate of upper lobe of left lung. She was treated with IV levofloxacin and IV methylprednisone. On day of discharge her WBC normalized at 9, she was afeb rile and clinically appeared improved. She was discharge with a 6 day course of oral Levofloxacin, 750mg, PO, once daily in addition to a 5 day prednisone taper. Given the treatment failure on Augmentin, it is presumable that either an atypical pathogen, such as mycoplasma, or a resistant strain of Haemophilus influenzae is likely culprit of PNA. After careful thought and shared decision making, levofloxacin was selected as the antimicrobial due to its coverage of both atypicals and resistant H.flu strains. Patient was counseled on risk of tendinopathy/rupture and advised to withhold from strenuous physical exertion for 4 weeks. She was advised to follow up with [facility] early next week, at which time a consideration of discontinuing the Levofloxacin at 6 days rather than the full 7 would be reasonable. (2) Abnormal EKG: On admission EKG showed sinus tachycardia with non-specific T wave abnormality. Troponins x 2 were undetectable. No abnormal rhythms detected on telemetry during hospital stay. No further follow up recommended. (3) Shortness of breath: Likely secondary to pneumonia. Patient never required supplemental oxygen during hospital stay. (4) Asthma: Patient reported history of asthma as a child, but likely outgrew this condition, as she has not had to use any treatment in years. Total Time Total Time Spent Total Time Spent (In Minutes): >30 Discharge Plan Discharge Items Patient Disposition: Home - Self-Care Reason For Visit: MALAISE,COUGH,FEVER Discharge Diagnosis: Pneumonia Activity: Resume your previous activity Non-emergency contact: Primary Care Provider Call non-emergency contact if: you have any medication questions Follow-up/Referrals: [facility] [Non-Staff] - 09/03/19 10:45 am (Please, follow up at [facility] with Dr. Regino Durbin on MondaySeptember 03 at 11:00 am (arrive 10:45 am). *If you need to change/cancel this appointment, call the office at [phone].) Diet: Regular Addtl Attending Provider Instructions: You were hospitalized at [facility] for treatment of pneumonia. Your white blood cell count was elevated on admission, but normalized. You were treated with IV fluids and an antibiotic known as "levofloxacin." Please take levofloxacin 750mg, 1 tab, daily for the next 5 days. We recommend you also take prednisone 20mg, daily for 5 days. Please fo llow up with [facility] early next week. We advised you to minimize your physical activity for the next 4 weeks because of the potential risk of tendon injury associated with levofloxacin. Pending Studies at Discharge: No Stand-Alone Forms: [facility], Work/School Release (Inpt), Smoking Cessation Medications and DC Order Prescriptions: New prednisone 20 mg Tablet 20 mg PO DAILY 5 Days Qty: 5 RF: 0 levofloxacin 750 mg tablet 750 mg PO DAILY 5 Days Qty: 5 RF: 0 Continued norethindrone-e.estradiol-iron [] 1 mg-20 mcg (24)/75 mg (4) tablet 1 tab PO QAM RF: 0 Discharge Orders: Discharge Order (Routine); Ordered 08/30/19 Ordered By: Rahel Perry Admission Data Admit Date/Time: 08/29/19 14:36 Attending Provider: Agustín Padilla Admit Provider: Shelbie Sumner Primary Care Provider: Regino Durbin Other Providers: Shelbie Sumner Other Interventions: Discharge Summary Assessment (RN) Last Done: 08/30/19 13:46 DC Date/Time DO NOT enter until pt leaves facility: 08/30/19 15:47 Supervising Physician Co-Signing Physician Notes I personally examined the patient and verified all tariq points of history and exam, discussed case, and agree with decision making with Dr Perry. Feeling better. Breathing better. Definitely feels more fatigued and more easily dyspneic on exertion than normal, but definitely feels up to going home. Patient and mother present for an extensive discussion, answered all questions the best my ability and explained the situation to their satisfaction. Vitals noted, in general she is awake and alert pleasant no distress. HEENT normocephalic atraumatic mucous membranes moist. Breathing unlabored no accessory muscle use good effort. Skin shows no rashes no pallor or icterus. Community-acquired pneumonia with sepsis present on admissionSirs was mild but was manifested by her heart rate and white countnow improving nicely. The fact that she was on Augmentin as an outpatient begs a question of her failure being because the pneumonia was an atypical versus a drug resistant strain of strep pneumo or H. influenzaeCT chest looks patchy favoring atypical, but only on the left side favoring more of a drug resistant bacterium. Because of all of this as well as the fact that she was fairly sick on arrival, the fact that Levaquin would cover for all 3, and would cover strep pneumo and H. influenzae via a different mechanism than a beta-lactam, we determine this would be the most appropriate course of treatment. Extensive discussion with patient and mom on the risks/benefits/drawbacks of course of Levaquinincluding risk of t endinitis/tendon rupturepatient expressed understanding and we discussed protective measures to minimize risk for tendon issues. We discussed minimizing treatment duration to minimize risk of side effectpresumably for 5 days, but possibly 7, prescribed so that she would be able to complete 7 days of therapy, but she is to follow-up with [facility] on day 5. Otherwise stable for discharge in this regard Tachycardiaher tachycardia was almost certainly reflex from the pneumonia. Abnormal EKG with flipped T waves almost certainly a false positive, especially given her negative troponins young age and lack of other significant cardiac risks. Further she had no PEs on CT chest. Safe/stable for home in this regard, outpatient follow-up. otherwise as above Resident Activity Tracking Resident Involvement: Resident Care Provided Care Provided: Adult Hospital Medicine
--- NOTE | 2019-08-30 16:48 | Billing Data ---
Date of Service August 30, 2019 Coding Level of Care Code D/C Day Management >30 mins
== END 2019-08-30 15:47 | disposition home or self-care (01) | DRG 871 ==
LOC: ED 10:28 → 2S 14:36 → SUATTDRO 14:36 → 2S 15:43